=== PATIENT | female | born 1960 | race Caucasian/White ===

== ENCOUNTER → 2017-02-26 | Outpatient (CLI) | payer OTHER ==
[~2017-02-26] VITALS: Ht 162.6 cm; Wt 66.6 kg
[~2017-02-26] MED LIST: AMBIEN 5 MG TABL5 M1 PO; CALCIUM 500 +1 EAC5 PO; CENTRUM SILVER1 EAC4 PO; FISH OIL 1,001000 M2 PO; HYDROCODONE-AP1 EAC6 PO; MELOXICAM15 MG PO; NEURONTIN 300300 M1 PO; SULFAZINE EC500 MG PO; TOVIAZ8 MG PO; TRAMADOL 50 MG50 MG PO
--- NOTE | ~2017-02-26 | HPC ---
[facility] [place] [address] PAIN MANAGEMENT CONSULTATION Name: OSMAR CAMPUZANO Room #: REG CLRivera Tatyana#: [id number] Admission: 02/26/17 Attend Phys: Elia Lozoya MD Discharge: Date of : 56 Report #: [id number] THIS REPORT FOR: //name// CC: Wilfred Lozoya DATE OF SERVICE: 02/26/2017 Follow up visit for chronic low back pain with radiculopathy, rheumatoid arthritis, and fibromyalgia. The patient returns to the pain clinic today, continued to complain of pain in the low back and radiating down into both legs. She was given a trial of tramadol at her last visit and we discussed epidural injections. I also have reviewed her x-rays, which show that she has degenerative spinal stenosis present at L3-L4, L4-L5, and neural foraminal encroachment particularly on the left, but also on the right. It should be noted that MRI is quite old taken in 2008. There have been changes since that time, I am certain. She reports that she simply tired of the day to day pain. She has been living now with chronic pain on a daily basis for years. She has tried her best to remain active and she has tried also sorts of non-medicinal treatments. She has been on nonsteroidal anti-inflammatory drugs, found them to be modestly helpful and remains on them for rheumatoid arthritis. They do not seem to help much with her back pain and leg pain. She has tried gabapentin unsuccessfully, the tramadol caused nausea. She asked today about other medications and we spent about 25 minutes discussing opioids and their use in treatment of chronic intractable pain. She is very sensitive to medications and I have agreed to provide her with hydrocodone at low dose and we can see how she does with 5 mg provided up to 2-3 times a day. Discussed side effects from the medication, the process of providing medications over long-term under terms of our written opioid agreement and within the CDC guidelines. My suspicion is that she will not use excessive amounts of medication if she uses them at all, but she is now looking at anything that she can do that will allow her to remain active through her 60s. She also notes that she has tried different antidepressant medications including Cymbalta, which she found to be unsatisfactory and unhelpful for her pain. Today, her pain score is 5-6, described as a constant, burning, and aching across the low back. Pain does extend down into the lower extremities bilaterally and follows more of an L4-L5 distribution. PHYSICAL EXAMINATION: She is a pleasant 57-year-old female. Blood pressure 128/78, heart rate 73, and respirations 98. She has pain across her low back with mild lumbosacral curvature tenderness. Straight leg raising bilaterally [facility] [address] [place] [address] PAIN MANAGEMENT CONSULTATION Name: OSMAR CAMPUZANO Room #: REG [place] Joe#: [id number] Admission: 02/26/17 Attend Phys: Elia Lozoya MD Discharge: Date of : 56 Report #: [id number] positive down the posterior lateral aspect of both legs. Sensation and strength are normal. IMPRESSION: 1. Chronic low back pain with radiculopathy. 2. Rheumatoid arthritis. 3. Fibromyalgia. 4. Possible peripheral neuropathy. PLAN: Epidural steroid injection under fluoroscopic guidance and initiation of a trial of [place] 5/325 as described above. PROCEDURE: She was taken to fluoroscopic suite, placed prone, skin prepped with ChloraPrep. Skin anesthetized over L3-L4. I chose this because on the fluoro films, this appeared to be the most degenerative level with spurring noted at the disk space. Needle was advanced gently into the epidural space on the first attempt with loss of resistance, no blood or CSF aspirated. 1 mL of Omnipaque was injected and good bilateral spread noted, it was then followed by 3 mL of 0.5% lidocaine mixed with 80 mg of triamcinolone. She tolerated the procedure very well and was taken to recovery room. Pain score at discharge was 0 from a 6 on admission. Followup visit is planned in 1 month. We will consider prescribing additional hydrocodone based upon her trial. <ELECTRONICALLY SIGNED> By: Elia Lozoya MD 03/04/17 1551 [id number] Elia Lozoya MD /nt
[2017-02-26 14:31] VITALS: BP 128/88
== END | disposition home or self-care (01) ==
LOC: PAIN 06:57
DX: M54.16 Radiculopathy, lumbar region (principal); M06.9 Rheumatoid arthritis, unspecified; M79.7 Fibromyalgia

== ENCOUNTER → 2019-02-14 | Outpatient (CLI) | payer OTHER | LOC: CAT 08:51 | DX: Z13.6 Encounter for screening for cardiovascular disorders (principal); I25.10 Atherosclerotic heart disease of native coronary artery without angina pectoris ==

== ENCOUNTER → 2020-03-12 | Outpatient (CLI) | payer BC ==
[~2020-03-12] VITALS: Ht 162.6 cm; Wt 67.1 kg
[~2020-03-12] MED LIST changes: +MELATONIN3 M1 PO; +NEURONTIN 300M300 M2 PO
[2020-03-12 13:27] VITALS: BP 132/83
--- NOTE | 2020-03-12 14:07 | NUR ---
Pain Clinic Assessment: 1. History of Osteoarthritis: YES History of Rheumatoid Arthritis: YES 2. Height: 5 ft. 4 in. 162.6 cm. Weight: 148.0 lb. oz. 67.132 kg. Patient's BMI: 25.4 3. Vital Signs: BP: 132/83 Pulse: 73 Resp: 16 Temp: 02 Sat: 100 ECG Mon: 4. Pain Intensity: 7 5. Fall Risk: Dizziness: N Needs help standing or walking: N Fallen in the last 3 months: N Fall risk comments: 6. Patient on Blood Thinner: None 7. History of Hypertension: N 8. Opioid Therapy greater than 6 weeks: N Opiate Contract Signed: 9. Risk Assessment Tool Provided: 5- MOD RISK 10. Functional Assessment Tool: 11. Recreational Drug Use: Never Drug Type: Tobacco Use: Never Smoker Tobacco Type: Amount or Packs/day: How Many Years: Alcohol Use: Yes Frequency: Daily Quant: 1-2 GLASSES OF WINE
== END | disposition home or self-care (01) ==
LOC: PAIN 06:52
PROVIDERS: ATTEND Anesthesiology Pain Medicine
DX: M51.16 Intervertebral disc disorders with radiculopathy, lumbar region (principal); G89.29 Other chronic pain; M19.90 Unspecified osteoarthritis, unspecified site; F32.9 Major depressive disorder, single episode, unspecified; Z98.890 Other specified postprocedural states; Z79.899 Other long term (current) drug therapy; Z88.8 Allergy status to other drugs, medicaments and biological substances

== ENCOUNTER → 2020-04-11 | Outpatient (CLI) | payer BC ==
[~2020-04-11] VITALS: Ht 162.6 cm; Wt 71.2 kg
[2020-04-11 12:40] VITALS: BP 139/84
--- NOTE | 2020-04-11 12:46 | NUR ---
Pain Clinic Assessment: 1. History of Osteoarthritis: spine History of Rheumatoid Arthritis: YES 2. Height: 5 ft. 4 in. 162.6 cm. Weight: 157.0 lb. oz. 71.215 kg. Patient's BMI: 26.9 3. Vital Signs: BP: 139/84 Pulse: 85 Resp: 16 Temp: 02 Sat: 96 ECG Mon: 4. Pain Intensity: 5 5. Fall Risk: Dizziness: N Needs help standing or walking: N Fallen in the last 3 months: N Fall risk comments: 6. Patient on Blood Thinner: None 7. History of Hypertension: N 8. Opioid Therapy greater than 6 weeks: N Opiate Contract Signed: 9. Risk Assessment Tool Provided: 5- MOD RISK 10. Functional Assessment Tool: 11. Recreational Drug Use: Never Drug Type: Tobacco Use: Never Smoker Tobacco Type: Amount or Packs/day: How Many Years: Alcohol Use: Yes Frequency: Daily Quant: 1 wine
--- NOTE | 2020-04-16 10:13 | HPC ---
[facility] [place] [address] [place] [address] PAIN MANAGEMENT CONSULTATION Name: OSMAR CAMPUZANO Room #: REG [place] Feliciano.#: [id number] Admission: 04/11/20 Attend Phys: Oliver Manning DO Discharge: Date of : 56 Report #: [id number] THIS REPORT FOR: cc: Wilfred Glaser MD, Rene P. MD Johnson, James E. DO ~ DATE OF SERVICE: 04/11/2020 CHIEF COMPLAINT: Low back pain, right lower extremity pain with paresthesias. HISTORY OF PRESENT ILLNESS: As you know, the patient is a 60-year-old female with longstanding history of lumbar radiculopathy radiating down the right leg. She returns today in followup visit reporting a pain score of around 5/10. She describes the pain as constant, burning, aching, pulling, tender, numbness, and tingling; exacerbated with standing for any length of time, sitting for any length of time, improves with heat, cold compresses, massage, and cold treatments. She recently underwent an MRI of the lumbar spine. She wishes to review today. As you are aware, the patient has known lumbar radicular symptoms radiating down the right side shown in the EMG studies in the past. She continues to experience symptoms in the area. She returns to discuss treatment options for ongoing pain. The patient indicates no injury or trauma that may have led to symptom continuation. She is not on any medications that preclude us from providing an epidural injection today. ALLERGIES: CODEINE AND TRAMADOL. CURRENT MEDICATIONS: Melatonin 3 mg p.o. at bedtime, gabapentin 300 mg b.i.d. SOCIAL HISTORY: The patient denies tobacco, IV or illicit drug use. Admits to occasional alcohol beverage. She is unaccompanied at today's visit. IMAGING: MRI of the lumbar spine obtained 01/24/2020 showing mild to moderate changes from T12 through L2. At L2-L3, there is moderate facet arthropathy, mild central canal stenosis and left lateral recess stenosis, mild right and mild to moderate left neural foraminal stenosis. L3-L4 shows moderate facet arthropathy, mild central canal stenosis, left greater than right, moderate right and severe left neural foraminal narrowing. There is mild facet arthropathy at L4-L5 level with mild central canal stenosis and lateral recess stenosis, severe right and mild to moderate left neural foraminal narrowing. L5-S1 shows severe right and moderate left facet arthropathy. No significant central canal stenosis, mild right and moderate left neural foraminal narrowing. PHYSICAL EXAMINATION: VITAL SIGNS: Blood pressure 139/84, pulse is 85, respiratory rate 16 and unlabored. The patient is 96% on room air. Height 5 feet 4 inches tall, weight 157 pounds, BMI calculated 26.9. [place] [address] PAIN MANAGEMENT CONSULTATION Name: OSMAR CAMPUZANO Room #: REG [facility].#: [id number] Admission: 04/11/20 Attend Phys: Oliver Manning DO Discharge: Date of : 56 Report #: [id number] GENERAL: Well-developed, well-nourished, well-hydrated 60-year-old female appearing stated age. She is placing current pain score at 5/10. HEENT: Normocephalic, atraumatic. Pupils equal and round. The patient is wearing a mask in compliance with COVID-19 regulations. EXTREMITIES: Show no clubbing, no cyanosis, and no appreciable edema. MUSCULOSKELETAL: Lower extremity strength is symmetrical 5/5. Slight giveaway strength noted with hip flexion, knee extension on the right when compared to left. Seated straight leg raising negative. Supine straight leg raising positive on the right. Lam's test is negative. Modified Gaenslen's positive for axial low back pain. Ankle clonus negative. Babinski is negative. The patient has tactile sensation intact from L1 through S2 dermatomes with mild changes in the distal portion of the L5 dermatome on the right. ASSESSMENT: 1. Symptomatic lumbar radiculopathy. 2. Neural foraminal stenosis of the lumbar spine. 3. Degeneration of the lumbar spine. 4. Lumbosacral spondylosis with radiculopathy. 5. Chronic intractable pain. PLAN: 1. The patient returns today in followup visit where we have spent over 35 minutes of time reviewing her recent MRI and how it correlates to her current symptoms. The patient has reviewed this with the neurosurgery team who had ordered the imaging study. It was mentioned during that discussion, the possibility of having the patient to undergo foraminotomy at the L4-L5 level, which is consistent with the patient's symptoms. She was referred back to our clinic to discuss conservative treatment options initially and if these then fail, move forward with more permanent treatment with a foraminotomy. The following was discussed with the patient today. We discussed physical therapy, stretching exercises, core strengthening techniques as a treatment course. This will improve her strength, but will likely provide little analgesic benefit. We discussed medication management, adding neuropathic pain medication such as amitriptyline, nortriptyline or escalating her gabapentin. She is only taking 300 mg b.i.d. and this is a subtherapeutic dose given her body habitus. We discussed repeating epidural injections to address the foraminal stenosis. We also then discussed spinal cord stimulator and ultimately surgical decompression. After reviewing risks and benefits of all proposed treatment options, the patient chose to undergo epidural injection under fluoroscopic guidance. 2. The patient was advised risks and benefits of a lumbar epidural injection. These risks include but are not necessarily limited to bleeding, bruising, infection, worsening pain, no relief of pain, also risk of temporary or permanent muscle weakness, temporary or permanent nerve damage, possible paralysis and . The patient states understood and wished to proceed. [address] [address] PAIN MANAGEMENT CONSULTATION Name: OSMAR CAMPUZANO Room #: REG [facility].#: [id number] Admission: 04/11/20 Attend Phys: Oliver Manning DO Discharge: Date of : 56 Report #: [id number] 3. No medication changes made at today's visit. The patient will continue current medical therapy as prior prescribed. 4. We will see the patient back in followup visit for possible next in the series of lumbar epidural injections. We are hopeful the patient will see good and prolonged benefit with today's procedure. If the patient wishes to return to discuss other treatment options, she may do so. PROCEDURE NOTE DESCRIPTION OF PROCEDURE: L5-S1 right paramedian epidural steroid injection under fluoroscopic guidance. This is the third procedure of the second series that the patient is undergoing. After obtaining written consent, the patient was taken back to the fluoroscopy suite, placed in a prone position with pillow under the abdomen to decrease lumbar lordosis. The skin overlying the lumbosacral area was then prepped and draped in aseptic fashion. The L5-S1 vertebral interspace was then identified by AP fluoroscopy. The skin and subcutaneous tissue overlying the target site of injection was anesthetized with 3 mL 1% lidocaine. A 20-guage, 3.5-inch Tuohy needle was then advanced under fluoroscopic guidance towards the epidural space using a right paramedian approach. The epidural space was identified using loss of resistance to air technique. After negative aspiration for heme or cerebrospinal fluid, a total of 1 mL of Omnipaque was injected. A lumbar epidurogram was confirmed using both AP and lateral fluoroscopy. After negative aspiration for heme or cerebrospinal fluid, 5 mL of a solution containing 2 mL 40 mg per mL, 80 mg total triamcinolone along with 3 mL of lidocaine 1% was injected in increments. Contrast spread was noted at posterior epidural space. The needle was then retracted approximately half way and needle tract flushed with 1 mL of 1% lidocaine. Needle was then removed. There were no apparent sensory or motor deficits in the lower extremity following the procedure. A sterile bandage was placed over the injection site. The heart rate, pulse, oximetry and blood pressure were continuously monitored after the procedure. There were no complications. The patient tolerated the procedure well and was carefully escorted to the recovery room in stable condition. There were no apparent complications. After meeting discharge criteria, the patient was then discharged home. <ELECTRONICALLY SIGNED> By: Oliver Manning DO 04/16/20 1013 [id number] Oliver Manning DO /nt
== END | disposition home or self-care (01) ==
LOC: PAIN 06:51
PROVIDERS: ATTEND Anesthesiology Pain Medicine
DX: M51.16 Intervertebral disc disorders with radiculopathy, lumbar region (principal); M47.27 Other spondylosis with radiculopathy, lumbosacral region; M47.26 Other spondylosis with radiculopathy, lumbar region; M48.061 Spinal stenosis, lumbar region without neurogenic claudication; G89.29 Other chronic pain; Z98.890 Other specified postprocedural states; Z79.899 Other long term (current) drug therapy; Z88.8 Allergy status to other drugs, medicaments and biological substances

== ENCOUNTER → 2021-01-08 | Outpatient (CLI) | payer BC ==
[~2021-01-08] VITALS: Ht 162.6 cm; Wt 70.4 kg
[~2021-01-08] MED LIST changes: +DULOXETINE HCL30 MG PO; +MELATONIN10 M3 PO
[2021-01-08 09:20] VITALS: BP 129/74
--- NOTE | 2021-01-08 09:41 | NUR ---
Pain Clinic Assessment: 1. History of Osteoarthritis: spine History of Rheumatoid Arthritis: YES 2. Height: 5 ft. 4 in. 162.6 cm. Weight: 155.2 lb. oz. 70.398 kg. Patient's BMI: 26.6 3. Vital Signs: BP: 129/74 Pulse: 80 Resp: 14 Temp: 02 Sat: 97 ECG Mon: 4. Pain Intensity: 8 5. Fall Risk: Dizziness: N Needs help standing or walking: N Fallen in the last 3 months: Y Fall risk comments: 6. Patient on Blood Thinner: None 7. History of Hypertension: N 8. Opioid Therapy greater than 6 weeks: N Opiate Contract Signed: 9. Risk Assessment Tool Provided: 5- MOD RISK 10. Functional Assessment Tool: 11. Recreational Drug Use: Never Drug Type: Tobacco Use: Never Smoker Tobacco Type: Amount or Packs/day: How Many Years: Alcohol Use: Yes Frequency: Weekly Quant: 2
--- NOTE | 2021-01-15 08:07 | HPC ---
[facility] [place] [address] [place] [address] PAIN MANAGEMENT CONSULTATION Name: OSMAR CAMPUZANO Room #: REG [place] FelicianoRahat#: [id number] Admission: 01/08/21 Attend Phys: Oliver Manning DO Discharge: Date of : 56 Report #: [id number] THIS REPORT FOR: cc: Odell Polk MD, Rene P. MD Johnson, James E. DO ~ cc: Wilfred Glaser MD DATE OF SERVICE: 01/08/2021 CHIEF COMPLAINT: Low back pain, right lower extremity pain with paresthesias. HISTORY OF PRESENT ILLNESS: As you know, the patient is a 60-year-old female with longstanding history of lumbar radiculopathy, beginning in the low back radiating down the right leg. She has been treated by my partner, Dr. Elia Lozoya for chronic lumbar radiculopathy. She was seen per Dr. Lozoya's request at my clinic on 04/11/2021, undergoing a right paramedian epidural injection at the L5-S1 level to address symptoms. She has been lost follow up visit since that time. She is now seen by Neurology and has undergone EMGs of the upper extremity and lower extremities. There is noted EMG evidence of chronic left C5 and C7 radiculopathies without ongoing denervation, left C6 myotomal distribution is also involved. There is also noted a mild chronic right S1 radiculopathy without ongoing denervation consistent with the patient's distribution today. She returns today in followup visit and discussed treatment options. The patient has had a lumbar laminectomy, but patient continues to experience right foot numbness and right leg numbness and tingling as well as low back symptoms. She has been evaluated and deemed nonsurgical at this time and referred to our clinic to discuss lumbar epidural injections to address radicular symptoms secondary to foraminal stenosis. She states today pain level of about 8/10. ALLERGIES: CODEINE, TRAMADOL. CURRENT MEDICATIONS: Melatonin 10 mg p.o. at bedtime, gabapentin 300 mg 3 times a day. SOCIAL HISTORY: The patient denies tobacco, IV or illicit drug use. Admits to occasional alcohol beverage. She is unaccompanied. IMAGING: No new imaging is available. EMGs do show as indicated in the history of present illness. PHYSICAL EXAMINATION: VITAL SIGNS: Blood pressure 129/74, pulse is 80, respiratory rate 14 and unlabored. The patient 97% on room air. Height 5 feet 4 inches tall, weight 155.2 pounds, BMI calculated 26.6. GENERAL: Well-developed, well-nourished, well-hydrated 60-[place] [address] PAIN MANAGEMENT CONSULTATION Name: OSMAR CAMPUZANO Room #: REG CLRivera Joe#: [id number] Admission: 01/08/21 Attend Phys: Oliver Manning DO Discharge: Date of : 56 Report #: [id number] appearing stated age, placing current pain score 8/10. HEENT: Normocephalic, atraumatic. Pupils equal, round and responsive. She is wearing a mask in compliance with COVID-19 regulations. EXTREMITIES: Show no clubbing, no appreciable cyanosis or edema. MUSCULOSKELETAL: Lower extremity strength remains symmetrical 5/5 as does the muscle bulk present is equal and symmetrical in lower extremities. Seated straight leg raising negative. Supine straight leg raising is positive on the right approximately 60-degree angle. Ankle clonus negative. Babinski is negative. Gait is mildly antalgic favoring right lower extremity over left. Dermatomal distribution of symptoms consistent with L5 dermatome. ASSESSMENT: 1. Symptomatic lumbar radiculopathy. 2. Neural foraminal stenosis of lumbar spine. 3. Degeneration of lumbar spine. 4. Lumbosacral spondylosis with radiculopathy. 5. EMG findings of a right S1 radiculopathy. 6. Chronic intractable pain. PLAN: 1. The patient has returned today in followup visit to review recent EMG findings, it is consistent with a right S1 radiculopathy without ongoing denervation, which indicates that the surgical treatment has been beneficial. Unfortunately, she is left with radicular symptoms. She would be a candidate to treat with either nonsteroidal anti-inflammatories, neuropathic medications such as amitriptyline, nortriptyline, Cymbalta, Lyrica or gabapentin. She could also be treated with a lumbar epidural injection under fluoroscopic guidance or ultimately a spinal cord stimulator. After reviewing risks and benefits of all proposed treatment options, the patient chose to begin with medication management and epidural. 2. The patient was advised risks and benefits of a lumbar epidural injection. These risks include but are not necessarily limited to bleeding, bruising, infection, worsening pain, no relief of pain, also risk of temporary or permanent muscle weakness, temporary or permanent nerve damage, possible paralysis, and . The patient states understood and wished to proceed. 3. The patient is complaining of some increasing depression along with neuropathic pain involving not only the right lower extremity, but also her left upper extremity. We recommend starting the patient on Cymbalta started at 30 mg dose 1 tab p.o. at bedtime for 5 nights, no improvement in symptoms, no side effects, then increase to 60 mg p.o. at bedtime for 5 nights, no improvement in symptoms, no side effects, then increase to 1 tab in the morning and 2 tabs at night. Continue for another 5-7 nights and increase to 60 mg b.i.d. assuming necessary. The patient will watch for side effects with the medication. If she notes these side effects, discontinue that dose, reduce to the dose prior and contact our clinic. Prescription was sent via e-scribe to local pharmacy. 4. The patient will return to our clinic in 1 month. At that time, review the [address] [address] PAIN MANAGEMENT CONSULTATION Name: OSMAR CAMPUZANO Room #: REG [facility] Tori.#: [id number] Admission: 01/08/21 Attend Phys: Oliver Manning DO Discharge: Date of : 56 Report #: [id number] efficacy of today's epidural injection. She will be following up with her original pain management physician, Dr. Lozoya. PROCEDURE NOTE DESCRIPTION OF PROCEDURE: L5-S1 right paramedian epidural steroid injection under fluoroscopic guidance. After obtaining written consent, the patient was taken back to fluoroscopy suite, placed in prone position with pillow under abdomen to decrease lumbar lordosis. Skin overlying lumbosacral area prepped and draped in aseptic fashion. The L5-S1 vertebral interspace identified by AP fluoroscopy. Skin and subcutaneous tissue overlying target site injection anesthetized with 3 mL of 1% lidocaine. A 20 gauge 3-1/2 inch Tuohy needle advanced under fluoroscopic guidance towards the epidural space using a right paramedian approach. Epidural space identified using loss of resistance to air technique. After negative aspiration for heme or cerebrospinal fluid, 1 mL of Omnipaque injected. Lumbar epidurogram was confirmed using both AP and lateral fluoroscopy. After negative aspiration for heme or cerebrospinal fluid, 5 mL solution containing 2 mL 40 mg per mL 80 mg total triamcinolone along with 3 mL of lidocaine 1% injected slowly. Needle retracted mcfp flushed with 1 mL of 1% lidocaine and removed. Sterile bandage placed over injection site. No new motor deficits present in lower extremity following procedure. The patient tolerated the procedure well, carefully escorted to recovery room in stable condition. No apparent complications. After meeting discharge criteria, the patient discharged home. <ELECTRONICALLY SIGNED> By: Oliver Manning DO 01/15/21 0807 [id number] [id number] Oliver Manning DO /nt
== END | disposition home or self-care (01) ==
LOC: PAIN 06:47
PROVIDERS: ATTEND Anesthesiology Pain Medicine
DX: M51.16 Intervertebral disc disorders with radiculopathy, lumbar region (principal); M48.061 Spinal stenosis, lumbar region without neurogenic claudication; M47.27 Other spondylosis with radiculopathy, lumbosacral region; G89.29 Other chronic pain; Z98.890 Other specified postprocedural states; Z79.899 Other long term (current) drug therapy; Z88.8 Allergy status to other drugs, medicaments and biological substances

== ENCOUNTER → 2021-02-21 | Outpatient (CLI) | payer BC ==
[~2021-02-21] VITALS: Ht 162.6 cm; Wt 69.5 kg
[~2021-02-21] MED LIST changes: +PAIN RELIEF EX500 MG PO
[2021-02-21 08:53] VITALS: BP 141/86
--- NOTE | 2021-02-21 09:09 | NUR ---
Pain Clinic Assessment: 1. History of Osteoarthritis: spine History of Rheumatoid Arthritis: YES 2. Height: 5 ft. 4 in. 162.6 cm. Weight: 153.2 lb. oz. 69.491 kg. Patient's BMI: 26.3 3. Vital Signs: BP: 141/86 Pulse: 74 Resp: 16 Temp: 02 Sat: 100 ECG Mon: 4. Pain Intensity: 8 5. Fall Risk: Dizziness: N Needs help standing or walking: N Fallen in the last 3 months: N Fall risk comments: 6. Patient on Blood Thinner: None 7. History of Hypertension: N 8. Opioid Therapy greater than 6 weeks: N Opiate Contract Signed: 9. Risk Assessment Tool Provided: 5- MOD RISK 10. Functional Assessment Tool: 11. Recreational Drug Use: Never Drug Type: Tobacco Use: Never Smoker Tobacco Type: Amount or Packs/day: How Many Years: Alcohol Use: Yes Frequency: Daily Quant: 1
== END | disposition home or self-care (01) ==
LOC: PAIN 08:13
PROVIDERS: ATTEND Anesthesiology Pain Medicine
DX: M54.16 Radiculopathy, lumbar region (principal); G89.29 Other chronic pain; M06.9 Rheumatoid arthritis, unspecified; Z98.890 Other specified postprocedural states; Z79.899 Other long term (current) drug therapy; Z88.8 Allergy status to other drugs, medicaments and biological substances

== ENCOUNTER → 2021-03-25 | Outpatient (CLI) | payer BC ==
[~2021-03-25] VITALS: Ht 162.6 cm; Wt 68.8 kg
[~2021-03-25] MED LIST changes: +BIOFREEZE118 ML TOP; +BUPROPION XL300 MG PO; +TYLENOL ES PO; +[UNRECOGNIZED DRUG - OTHER]
[2021-03-25 08:52] VITALS: BP 135/85
--- NOTE | 2021-03-25 09:07 | NUR ---
[facility] Assessment: 1. History of Osteoarthritis: spine History of Rheumatoid Arthritis: YES 2. Height: 5 ft. 4 in. 162.6 cm. Weight: 151.6 lb. oz. 68.765 kg. Patient's BMI: 26.0 3. Vital Signs: BP: 135/85 Pulse: 73 Resp: 14 Temp: 02 Sat: 98 ECG Mon: 4. Pain Intensity: 8 5. Fall Risk: Dizziness: N Needs help standing or walking: N Fallen in the last 3 months: N Fall risk comments: 6. Patient on Blood Thinner: None 7. History of Hypertension: N 8. Opioid Therapy greater than 6 weeks: N Opiate Contract Signed: 9. Risk Assessment Tool Provided: 5- MOD RISK 10. Functional Assessment Tool: 11. Recreational Drug Use: Never Drug Type: Tobacco Use: Never Smoker Tobacco Type: Amount or Packs/day: How Many Years: Alcohol Use: Yes Frequency: Quant:
== END | disposition home or self-care (01) ==
LOC: PAIN 06:41
PROVIDERS: ATTEND Anesthesiology Pain Medicine
DX: M54.16 Radiculopathy, lumbar region (principal); G89.29 Other chronic pain; M96.1 Postlaminectomy syndrome, not elsewhere classified; M06.9 Rheumatoid arthritis, unspecified; Z98.890 Other specified postprocedural states; Z79.899 Other long term (current) drug therapy; Z88.8 Allergy status to other drugs, medicaments and biological substances

== ENCOUNTER → 2021-04-09 | Outpatient (CLI) | payer BC | LOC: NUC 10:49 | DX: M85.88 Other specified disorders of bone density and structure, other site (principal) ==